=== PATIENT | male | born 1955 | race Caucasian/White ===

== ENCOUNTER 2016-09-25 23:28 | Inpatient (IN) | payer MEDICARE ==
[~2016-09-25] VITALS: Ht 182.9 cm; Wt 71.8 kg
--- NOTE | ~2016-09-25 | ENPV ---
Vascular Upper Extremities Veins Procedure Demographics Patient Name ROBSON HOWELL Date of Study 09/26/2016 Patient Number [id number] Gender Male Date of 1955 Age 61 Visit Number [id number] Height Accession Number [id number] Weight Room Number G6303 BSA BMI Referring Codie Webb MD Interpreting Neymar Holliday MD Physician Physician Physician Ordering Physician Codie Webb MD Frame Builder Pecan Cleaner Keerthi Castro T, [facility] Conclusions Summary The right internal jugular vein was not imaged due to central line location. No evidence of DVT in the bilateral upper extremities. Possible thrombus in the right cephalic vein. Procedure Type of Study: Veins:Upper Extremities Veins, Venous Duplex Upper Extremity Bilateral. Indications for Study:DVT, History of. Patient Status:Routine. Study Location:Inpatient Portable. Technical Quality:Adequate visualization. Velocities are measured in cm/s ; Diameters are measured in cm Right UE Vein Measurements 2D and Doppler Measurements + + + + +--------+--------+ !Location !Visualized !Compressibility !Thrombosis !Signal !Reflux ! + + + + +--------+--------+ !SCV !Yes !Yes !None !Phasic !No ! + + + + +--------+--------+ !Innominate !Yes !Yes !None !Phasic !No ! + + + + +--------+--------+ !Axillary !Yes !Yes !None !Phasic !No ! + + + + +--------+--------+ !Brachial !Yes !Yes !None !Phasic !No ! + + + + +--------+--------+ !Radial !Yes !Yes !None !Phasic !No ! + + + + +--------+--------+ !Ulnar !Yes !Yes !None !Phasic !No ! + + + + +--------+--------+ !Basilic !Yes !Yes !None !Phasic !No ! + + + + +--------+--------+ !Cephalic !Yes !Partial ! ! ! ! + + + + +--------+--------+ Left UE Vein Measurements 2D and Doppler Measurements + + + + +--------+--------+ !Location !Visualized !Compressibility !Thrombosis !Signal !Reflux ! + + + + +--------+--------+ !IJV !Yes !Yes !None !Phasic !No ! + + + + +--------+--------+ !SCV !Yes !Yes !None !Phasic !No ! + + + + +--------+--------+ !Innominate !Yes !Yes !None !Phasic !No ! + + + + +--------+--------+ !Axillary !Yes !Yes !None !Phasic !No ! + + + + +--------+--------+ !Brachial !Yes !Yes !None !Phasic !No ! + + + + +--------+--------+ !Radial !Yes !Yes !None !Phasic !No ! + + + + +--------+--------+ !Ulnar !Yes !Yes !None !Phasic !No ! + + + + +--------+--------+ !Basilic !Yes !Yes !None !Phasic !No ! + + + + +--------+--------+ !Cephalic !Yes !Yes !None !Phasic !No ! + + + + +--------+--------+ Signature dtt: DAVID QUINONES dtd: 09/26/16 1053 Physician Self Edit
--- NOTE | ~2016-09-25 | HP ---
PATIENT'S NAME: ROBSON HOWELL [facility] AGE: 61 Y [address] ROOM: [id number] [place], [place] [address] LOCATION: GPCU ADMIT DATE: 09/25/2016 History & Physical DISCHARGE DATE: FAMILY PHYSICIAN: PHYSICIAN, UNKNOWN ATTENDING PHYSICIAN: DIALLO EASTON DATE OF SERVICE: 09/25/2016 CHIEF COMPLAINT: Acute blood loss anemia likely upper gastrointestinal bleeding. HISTORY OF PRESENT ILLNESS: This is a 61-year-old male who says that today around 4 p.m. after he went to the bathroom to urinate and to have a bowel movement he noticed that his bowel movement was loose, but he denied any black stool or any bright red blood per rectum. After that, he walked out of the bathroom, while he was walking, he felt dizzy, and he felt like he was going to pass out; therefore, he sat down on the ground. He is not sure if he passed out or not. But he strongly denied any head trauma or any fall. Because he felt so weak and dizzy, he called the ambulance and the patient was brought to [facility]. Over there, patient was hypotensive on arrival with SBP in high 70s' and MAP in low 60's and was found to be acutely anemic with hemoglobin of 7.2, hematocrit 21.9, and also leukocytosis with 11.5 and thrombocytopenia with 141, I am not sure what is the baseline, but over there, the physician who transferred the patient here told me that his baseline usually runs hemoglobin in the 12. Looking at our medical records back in October of 2013, his hemoglobin was 11.5, hematocrit was 35.7. He was also found to be thrombocytopenic with a platelet of 141. Based on our records back in October 2013, his platelet was 77,000. Hemoccult blood test x1 was negative. He was also hypokalemic with a potassium of 2.6. Kidney function within normal limits. Cardiac enzymes first set negative. INR was 1.83, D-dimer was 20.61, and PTT was 30.9. The patient had a CT pulmonary angiogram performed and no PE. EKG showed sinus tachycardia, heart rate of 138, with nonspecific ST changes, likely rate related. The patient says that prior to going to [place] during the ambulance ride, the patient also complained of slight substernal chest tightness and slight shortness of breath as well as abdominal pain specifically in the right lower quadrant and the left lower quadrant and infraumbilical abdomen, but he said the pain in chest and abdomen is very mild. He feels nauseous, but he has not vomited. The patient strongly denies any recent hematemesis, coffee-ground emesis, melena, hematochezia, or hematuria and can not remember when was the last time he had any of these GI bleeding symptoms. Because of the concern of esophageal variceal bleeding, the patient was transferred here for higher level of care. Prior to coming, patient was given iv octerotide bolus then drip, iv protonix bolus then drip, 2L NS bolus, 1g iv cefriaxone x1, KCL 40meq IV x1, and IM Vit K 1mg x1. I did not instruct IM Vit K. PATIENT'S NAME: ROBSON HOWELL [facility] AGE: 61 Y [address] ROOM: [place] [address] [facility] ADMIT DATE: 09/25/2016 History & Physical DISCHARGE DATE: FAMILY PHYSICIAN: PHYSICIAN, UNKNOWN ATTENDING PHYSICIAN: DIALLO EASTON Before the patient came here, I instructed over there to give him IV octreotide bolus followed by drip, IV Protonix bolus followed by drip, 1 dose of 1 g IV ceftriaxone given that they do not have cefotaxime for the concern for spontaneous bacterial peritonitis, they also do not have the ability to perform paracentesis for peritoneal fluid study, the patient also got a bolus 1 L over there of normal saline, and they ordered 1 unit of blood, but it was never given. Over there, the physician had already given 1 mg of intramuscular vitamin K, which I did not instruct. The patient was sent over here for higher level of care. At one point, when the patient arrived over there in the emergency room, the patient was also found to be hypotensive, blood pressure was low in the 71 systolic with MAP of 46. The patient's blood pressure did improve with normal saline bolus, where an additional bolus was given for total of 2 L, blood pressure improved to the 120s, MAP in the high 70s, and the patient was transferred here. REVIEW OF SYSTEMS: As mentioned in the history of present illness. All other systems reviewed and negative except those mentioned in the history of present illness. PAST MEDICAL HISTORY: 1. Alcoholic cirrhosis, status post TIPS, esophageal varices, status post upper endoscopy banding twice in the past, the first-time was here with us by Dr. Castro in October 2013 and the second time was in [place] and he is not sure of which year was that. 2. Ascites status post therapeutic paracentesis PRN in [place]. He does not remember when was the last time he had the paracentesis. 3. Hypertension. 4. Prior history of upper gastrointestinal bleeding from esophageal variceal bleeding, status post banding twice as mentioned before. 5. Reported history of extensive RUE DVT secondary to PICC line induced (I was told by transferring physician in [facility] but details not unclear and no available report either). ALLERGIES: NONE. HOME MEDICATIONS: Currently, it is being reconciled. SOCIAL HISTORY: The patient says that he still smokes cigarette about 3 cigarettes per day for the last 50 years. He quit drinking alcohol about 3 months ago, and he used to drink 5 cans of beer per day for the last 20 years. He denies any illegal drug use. PAST SURGICAL HISTORY: PATIENT'S NAME: ROBSON HOWELL [facility] AGE: 61 Y [address] ROOM: [place] [address] [facility] ADMIT DATE: 09/25/2016 History & Physical DISCHARGE DATE: FAMILY PHYSICIAN: PHYSICIAN, UNKNOWN ATTENDING PHYSICIAN: DIALLO EASTON 1. Status post right elbow fracture surgical repair in the past. 2. Status post right shoulder fracture surgical repair in the past. 3. Status post right hip surgery for a fracture in the past. 4. Status post bilateral cataract surgery in August 2016. 5. status post TIPS placement. 6. status post esophageal varices banding x2. FAMILY HISTORY: Father from brain aneurysm at age 87 and mother is healthy and alive. PHYSICAL EXAMINATION: VITAL SIGNS: At the time of my dictation, temperature 98.1, heart rate 104, respirations 22, blood pressure 136/62, saturation 96% on 2 L nasal cannula, and pain 2/10 in the abdomen specifically in the infraumbilical area, right lower quadrant, and left lower quadrant. GENERAL APPEARANCE: Alert and oriented x3, in no acute distress. HEENT: Mildly icteric in both sclerae, pupils are equally round and reactive to light. Extraocular muscles intact. Nasal turbinates are normal bilaterally. Moist oral mucosa. No oral thrush. NECK: No JVD. No cervical lymphadenopathy. No neck stiffness. CARDIOVASCULAR: Regular rate and rhythm. Normal S1, S2. No murmur, no rubs, no gallops. RESPIRATORY: Clear. Chest wall nontender to palpation. ABDOMEN: Distended, soft, no abdominal rigidity, no rebound tenderness, no palpable mass, he has a hernia that is palpable and reducible and not painful in the right lower quadrant, mildly tender to palpation in the infraumbilical, right lower quadrant, and left lower quadrant area, bowel sounds are present. EXTREMITIES: No edema in upper or lower extremities. NEUROLOGIC: Grossly nonfocal. SKIN: No ulcer, no rash, no cyanosis. MUSCULOSKELETAL: No joint pain. No muscle pain. Range of motion intact. No pain in palpation of posterior ribs. LABORATORY DATA: Currently, our labs are pending. Labs from the outside facility today white blood cell 11.5, hemoglobin 7.2, hematocrit 21.9, and platelet 141. Hemoccult blood test x1 negative. Potassium 2.6, sodium 140, chloride 107, carbon dioxide 15, BUN 12, glucose 134, creatinine 1.2, calcium 7.3, LDH 164, magnesium 1.8, anion gap 21, and GFR 66. CK-MB 2.2, CPK 108, troponin less than 0.015, INR 1.83, PTT 30.9, D- dimer 20.61. IMAGING STUDIES: 1. CT pulmonary angiogram performed at the outside facility on admission: The report showed COPD and ascites with LeVeen shunt in place and no evidence of pulmonary embolism. PATIENT'S NAME: ROBSON HOWELL [facility] AGE: 61 Y [address] ROOM: [place] [address] [facility] ADMIT DATE: 09/25/2016 History & Physical DISCHARGE DATE: FAMILY PHYSICIAN: PHYSICIAN, UNKNOWN ATTENDING PHYSICIAN: DIALLO EASTON 2. Chest x-ray from the outside facility on admission: Fracture of the right posterior 8th rib. The age is indeterminate. No pleural effusion. No evidence of heart failure. No evidence of pneumonia. ASSESSMENT AND PLAN: 1. Regarding his acute blood loss anemia likely from upper gastrointestinal bleeding and sepsis from probable SBP: Currently, the cause is not clear, could be from esophageal variceal bleeding from slow oozing of blood. The patient denies any projectile hematemesis or coffee-ground emesis. He also denies any melena or hematochezia. Hemoccult test was negative x1 from the outside facility today. The patient has history of upper gastrointestinal bleeding in the past from esophageal variceal bleeding requiring banding twice in the past. Therefore, I am going to treat him for esophageal variceal bleeding. The plan will be intravenous normal saline hydration and continue the intravenous octreotide drip, continue intravenous Protonix drip, and transfuse the blood for goal to reach hemoglobin more than 9 and correct the coagulopathy. I am waiting for all the blood work to come back to correct the coagulopathy to keep the platelet more than 50,000 and correct the INR if it is supratherapeutic. Regarding prophylaxis for spontaneous bacterial peritonitis in any patient with liver cirrhosis with gastrointestinal bleeding usually is 1g iv ceftriaxone daily for 7 days. However, in this case, I am going to treat him empirically for spontaneous bacterial peritonitis given that he does have mild abdominal tenderness to palpation in the bilateral lower quadrant and infraumbilical area. CT pulmonary angiogram from the outside facility did show extensive ascites. At this moment, it is 1:41 a.m., therefore I do not have staff to perform paracentesis for ascitic fluid study. Ideally, he should be getting cefotaxime 2 g q.8 h. IV, but when called the pharmacy, we are shortage in this medication and is only reserved for the pediatric population; therefore, I am going to go ahead with ceftriaxone 2 g IV daily as a second choice. GI consult in the morning. Further plan depends on clinical course. I will get a CT abd/pelv with contrast for abdominal pain and doppler US to confirm TIPS patency and look into biliary tract. Radiology to evaluate to perform diagnostic paracentesis for SBP studies in AM if needed. I will do sepsis workup including blood culture x2, urinalysis, urine drug screen, and urine culture. GI consult in AM and NPO and iv fluids. Further plan depends on clinical course. Sepsis order set has been completed and is in chart. 2. Regarding his hypertension: Currently, medications are being reconciled and will hold off antihypertensies in setting of sepsis and GI bleeding. PATIENT'S NAME: DANTE, ROBSON M [facility] AGE: 61 Y [address] ROOM: [place] [address] [facility] ADMIT DATE: 09/25/2016 History & Physical DISCHARGE DATE: FAMILY PHYSICIAN: PHYSICIAN, UNKNOWN ATTENDING PHYSICIAN: DIALLO EASTON 3. Regarding his active cigarette use: Nicotine patch 21 g transdermal daily. 4. Deep vein thrombosis prophylaxis: No heparin or lovenox in setting of GI bleeding. 5. Regarding his recent history of right upper extremity PICC line induced DVT: This information was given to me by the transferring physician from [place] and is on coumadin for it. Currently, in the setting of upper gastrointestinal bleeding, I am going to check INR right now and I need to correct it if it is supratherapeutic. I am going to get a bilateral upper and lower extremity venous duplex ultrasound to confirm deep vein thrombosis since report is not available upon my request. 6. Deep vein thrombosis prophylaxis: INR is pending right now and will avoid heparin or lovenox in setting of upper GI bleeding. Time spent on the day of admission 50 minutes including chart review, interviewing and examining the patient, getting transfer details from the transferring physician. I also went over the plan of care with the patient and nurses. I also addressed all the questions and concerns the patient had. MD ELLY ISBELL/myla /[id number] D: [id number] T: [id number] HISTORY & PHYSICAL
--- NOTE | ~2016-09-25 | OR ---
PATIENT'S NAME: ROBSON HOWELL [facility] AGE: 61 Y [address] ROOM: [place] [address] [facility] ADMIT DATE: 09/25/2016 OR/Procedure Report DISCHARGE DATE: FAMILY PHYSICIAN: PHYSICIAN, UNKNOWN ATTENDING PHYSICIAN: DIALLO EASTON SURGEON: Ej Capps MD AIR CONDITIONING EQUIPMENT MECHANIC: DATE OF PROCEDURE: 09/26/2016 PREOPERATIVE DIAGNOSES: 1. Acute blood-loss anemia. 2. Alcoholic cirrhosis with esophageal varices and ascites. 3. Cirrhosis-induced coagulopathy. 4. Poor peripheral venous access. POSTPROCEDURE DIAGNOSIS: 1. Acute blood-loss anemia. 2. Alcoholic cirrhosis with esophageal varices and ascites. 3. Cirrhosis-induced coagulopathy. 4. Poor peripheral venous access. INDICATIONS: The patient is a 61-year-old male, who was admitted with acute hypovolemic blood loss. The patient has had poor peripheral venous access, and I was requested to place a central venous catheter. Informed consent was obtained from the patient. DESCRIPTION OF PROCEDURE: The patient was taken into the procedure room of the OR suite, placed in a supine position with his head turned to the left. A [employer] monitor was used to identify the course of the right internal jugular vein. The neck was prepped and draped in the usual sterile fashion using full barrier precautions. Lidocaine, 1%, was injected subcutaneously over the right internal jugular vein. A seeker needle then was used to cannulate the right IJ on the 1st attempt. A dilator was then passed over the guidewire after creation of the stab incision. The dilator was then removed and a 16 cm 8.5-Ethiopian four lumen catheter was easily introduced over the guidewire to the depth of its hub. The guidewire was then removed and the lumens flushed. Catheter was sutured into place and a sterile dressing applied. The patient tolerated the procedure well. EJ CAPPS MD MWS/irineol PATIENT'S NAME: ROBSON HOWELL [facility] AGE: 61 Y [address] ROOM: [place] [address] LOCATION: [facility] ADMIT DATE: 09/25/2016 OR/Procedure Report DISCHARGE DATE: FAMILY PHYSICIAN: PHYSICIAN, UNKNOWN ATTENDING PHYSICIAN: DIALLO EASTON /[id number] d: 09/26/16 0907 t: 09/29/16 1511, OPERATIVE SUMMARY
--- NOTE | ~2016-09-25 | DS ---
PATIENT'S NAME: ROBSON HOWELL [facility] AGE: 61 Y [address] ROOM: [place] [id number] LOCATION: GPCU ADMIT DATE: 09/25/2016 Discharge Summary DISCHARGE DATE: 09/30/2016 FAMILY PHYSICIAN: PHYSICIAN, LAURA ATTENDING PHYSICIAN: Berhane Mackay PRIMARY DIAGNOSES: 1. Severe sepsis. 2. Hemorrhagic ascites. 3. Esophageal varices status post banding procedure. 4. Acute blood loss anemia. 5. Alcoholic cirrhosis of the liver. 6. Coagulopathy. 7. History of deep vein thrombosis, right upper extremity (provoked secondary to PICC line). 8. Essential hypertension. 9. Status post TIPS procedure. OPERATIONS/PROCEDURES: CT scan of the abdomen and pelvis was performed on 09/26/2016 demonstrating a cirrhotic-appearing liver, large volume ascites with increased attenuation concerning for hemorrhage. TIPS catheter in place. Abdominal ultrasound performed on 09/26/2016 confirmed the presence of ascites. Abdominal paracentesis was performed on 09/26/2016. EGD with esophageal variceal banding was performed on 09/29/2016 without any complications. HISTORY OF PRESENTING ILLNESS AND REASON FOR ADMISSION: Please refer to the H and P dictated on 09/25/2016. HOSPITAL COURSE: The patient was admitted to the hospital as noted above with a presumptive diagnosis of acute upper GI bleeding. He was noted to be profoundly anemic at the point of admission. There was also clinical evidence for sepsis. Concern was for spontaneous bacterial peritonitis. He was treated with IV Rocephin. His clinical condition was stable. He did receive PRBC transfusion and his hemoglobin remained relatively stable. There was, in fact, no evidence for brisk GI bleeding. Abdominal imaging studies did however suggest presence of intraabdominal bleeding. Concern was for SBP as above. He was continued on antibiotic therapy, but cultures were negative. Abdominal paracentesis was carried out after the initiation of antibiotics and cultures failed to show any growth. His clinical condition improved. He had been treated with warfarin for right upper extremity DVT, but this was held. This was noted to be a provoked PATIENT'S NAME: ROBSON HOWELL [facility] AGE: 61 Y [address] ROOM: [address] [address] LOCATION: GPCU ADMIT DATE: 09/25/2016 Discharge Summary DISCHARGE DATE: 09/30/2016 FAMILY PHYSICIAN: , LAURA ATTENDING PHYSICIAN: Berhane Mackay. He did not show any residual evidence for active DVT in the arm. No imaging studies were undertaken. His coagulopathy improved. He did undergo EGD with esophageal variceal banding by Dr. Johnson, Gastroenterology. He did not show any evidence for ongoing bleeding and his clinical condition was stable. At that point, it was felt he would be stable enough for discharge to home with plans for close clinical followup with his primary care provider as well as outpatient followup with Gastroenterology. DISCHARGE INSTRUCTIONS: Diet: 2 g sodium per day as tolerated. Activity: As tolerated. Strict avoidance of alcohol. MEDICATIONS: 1. Ciprofloxacin 500 mg p.o. daily. 2. Lasix 20 mg p.o. daily. 3. Peridex Rinse 10 to 15 mL p.o. swish and spit q.i.d. p.r.n. 4. Nicotine patch 21 mg apply and change daily. Do not smoke. 5. Protonix 40 mg p.o. b.i.d. 6. Spironolactone 50 mg p.o. daily. 7. Zanaflex 2 mg p.o. t.i.d. p.r.n. 8. Meclizine 25 mg p.o. t.i.d. p.r.n. 9. Pepcid 20 mg p.o. b.i.d. 10. Gatifloxacin ophthalmic drops 1 drop each eye q.i.d. FOLLOWUP: He will follow up with his primary care provider in [place] in 5-7 days. He will follow up with Gastroenterology in 2-4 weeks. CONDITION ON DISCHARGE: Fair. Total time spent on discharge process 45 minutes. MD ITALO ALEGRE/myla /[id number] d: 10/01/16 0258 t: 10/12/16 2144, DISCHARGE SUMMARY
--- NOTE | ~2016-09-25 | CON ---
PATIENT'S NAME: ROBSON HOWELL [facility] AGE: 61 Y [address] ROOM: [id number] [place], [place] [address] LOCATION: GPCU ADMIT DATE: 09/25/2016 Consultation DISCHARGE DATE: FAMILY PHYSICIAN: PHYSICIAN, LAURA ATTENDING PHYSICIAN: DIALLO EASTON DATE OF CONSULTATION: 09/26/2016 REFERRING PHYSICIAN: MARVA TREJO MD HOSPITAL CONSULTATION REASON FOR CONSULTATION: Liver cirrhosis, ascites, and suspected GI bleed. HISTORY OF PRESENT ILLNESS: This is a very pleasant 61-year-old male with past medical history significant for decompensated liver cirrhosis secondary to alcohol use. The patient does state that he has been alcohol free for the past 3 months. He does have a history of esophageal variceal band ligation with the first procedure completed in October of 2013 with another upper endoscopy with banding approximately a year later completed in [place]. The patient also has a history of paracentesis though denies any paracentesis over the past 5 to 6 months. The patient was at home where he had a bowel movement and then began feeling like he was going to pass out as he lowered himself to the floor. He did have a syncopal episode where he felt dizzy while ambulating. The patient called the ambulance, was transported to [facility] in [place]. At that time, he was found to be hypotensive as well as acutely anemic with a hemoglobin of 7.2, hematocrit of 21.9. The patient was then transferred to [facility] for further GI workup. The patient was seen and examined. He denies any hematemesis, hematochezia, or melenic stool. He denies any evidence of GI blood loss. He does state over the past few days, he has been having abdominal discomfort with a decrease in appetite. The patient denies any chest pain, chest pressure, shortness of breath, fever, or chills. He did undergo a CT abdomen and pelvis at [facility] showing large volume ascites with questionable hemorrhage, cirrhotic liver with suspected regenerating nodules, TIPS and likely patent. We were asked to see in consultation for the patient's liver disease. PAST MEDICAL HISTORY: 1. Alcoholic liver cirrhosis, status post TIPS. 2. Esophageal varices banding x2. 3. Ascites status post paracentesis. 4. Hypertension. PATIENT'S NAME: ROBSON HOWELL [facility] AGE: 61 Y [address] ROOM: [place] [address] LOCATION: GPCU ADMIT DATE: 09/25/2016 Consultation DISCHARGE DATE: FAMILY PHYSICIAN: PHYSICIAN, NO ATTENDING PHYSICIAN: DIALLO EASTON 5. History of upper GI bleed secondary to esophageal varices. 6. History of extensive right upper extremity DVTs secondary to PICC line. PAST SURGICAL HISTORY: 1. Right elbow fracture, surgically repaired. 2. Right shoulder fracture, surgically repaired. 3. Right hip surgery for fracture. 4. Bilateral cataracts surgery. 5. TIPS placement. 6. Status post esophageal varices banding x2. First in October of 2013, second banding completed approximately a year from October 2013 in [place]. SOCIAL HISTORY: The patient does admit to smoking 3 cigarettes per day for the past 50 years. He used to have significant alcohol use though states that he has not drink in the past 3 months. At the time of active alcohol use, he does admit to drinking 5 cans of beer per day. He denies any illicit drug use. FAMILY HISTORY: The patient's father at the age of 87 from a brain aneurysm. The patient's mother is healthy. He denies any family history of liver diseases or cancers to his knowledge. ALLERGIES: NO KNOWN MEDICATION ALLERGIES. CURRENT MEDICATIONS: Please refer to the medication administration record. In review of his home medications: 1. He does take Pepcid. 2. Zanaflex. 3. Antivert. 4. Lasix 40 mg daily. 5. Coumadin. 6. Protonix. 7. Gatifloxacin eyedrops. REVIEW OF SYSTEMS: A 10-point review of systems was completed. All were negative except for those identified in the history of present illness. PHYSICAL EXAMINATION: GENERAL: A pleasant 61-year-old male, who is lying in bed, who appears to be in no acute distress. VITAL SIGNS: Temperature 98.6, pulse of 101, respirations of 18, blood PATIENT'S NAME: ROBSON HOWELL [facility] AGE: 61 Y [address] ROOM: [place] [address] LOCATION: GPCU ADMIT DATE: 09/25/2016 Consultation DISCHARGE DATE: FAMILY PHYSICIAN: PHYSICIAN, NO ATTENDING PHYSICIAN: EASTON,LANDRUM pressure 110/55, and oxygen saturations 95% on room air. SKIN: [place], warm, and dry. No jaundice. HEENT: Head is normocephalic and atraumatic. Pupils are equal, round, and reactive to light. Sclerae are clear. Nonicteric. Oral mucosa is pink and moist. No thyromegaly. NECK: Soft and supple. CARDIOVASCULAR: Regular. Normal S1 and S2. RESPIRATORY: Respirations are even and unlabored. LUNGS: Clear to auscultation. Slightly diminished in the bilateral lobes. ABDOMEN: Slightly firm, round, and ascites noted. Bowel sounds positive x4 quadrants. MUSCULOSKELETAL: No muscle weakness or atrophy. EXTREMITIES: No clubbing, cyanosis, or edema. NEUROLOGIC: Grossly nonfocal. LABORATORY DATA AND IMAGING STUDIES: Labs and Diagnostics: The patient's lactate is 1.6, ammonia of 48. White blood cell count of 13.7, hemoglobin of 6.4, hematocrit of 19.7, and platelets of 130,000. Chemistry panel includes a glucose of 110, BUN of 16, creatinine of 1.3, sodium 143, potassium of 4.0, chloride of 112, CO2 of 20, and albumin of 2.2. AST of 35, ALT of 18, alkaline phosphatase of 171, total bilirubin of 2.3, direct bilirubin of 0.8, phosphorus of 3.4, and magnesium 1.7. Prothrombin time of 18.2, INR is 1.7. Drug screen was negative. Amylase was 36, lipase was 56. Procalcitonin was 0.82. A CT abdomen and pelvis was also completed showing liver with a nodular shrunken cirrhotic appearance, TIPS was present and also appears to be patent, somewhat small areas of patchy increased and decreased attenuation present within the liver, which may represent generating nodules, and calcified gallstones. The spleen was within normal limits as well as the pancreas and adrenal glands. Large volume of ascites was present, increased from the prior study. Increased attenuation was present within the ascites posteriorly raising the concern of hemorrhage within the ascitic fluid. This could also represent proteinaceous debris. Previously identified area of thrombosis within the portal vein was not identified on this current exam. ASSESSMENT AND PLAN: Again this is a pleasant 61-year-old male with past medical history of alcoholic liver cirrhosis with decompensation. The patient was admitted with acute anemia and transferred to [facility] for further workup regarding his anemia and sepsis. 1. Severe sepsis. There is concern for spontaneous bacterial peritonitis as the patient currently is on Rocephin and this should be continued until ruled out. 2. Anemia. The patient does not appear to have any evidence of gastrointestinal bleeding. Per the patient's CT scan completed today, PATIENT'S NAME: ROBSON HOWELL [facility] AGE: 61 Y [address] ROOM: [place] [address] LOCATION: GPCU ADMIT DATE: 09/25/2016 Consultation DISCHARGE DATE: FAMILY PHYSICIAN: PHYSICIAN, LAURA ATTENDING PHYSICIAN: DIALLO EASTON possible anemia secondary to intra-abdominal hemorrhage. We will go forth with an abdominal ultrasound-guided paracentesis for further evaluation. His ascitic fluid will be sent off for analysis including cell count with differential, culture cytology, albumin, amylase, and LDH. The patient may need to be given a unit of fresh frozen plasma as we will check for PT/INR. If INR is greater than 1.5, a unit of FFP will be given. Further the patient's MELD-Na score is 18 and Child-Sylvester Score of class C, further recommendations to be given after completion of paracentesis with the ascitic fluid analysis. The patient may need to undergo an upper endoscopy for further evaluation of the previous esophageal varices, though this will be placed on hold at this time. The patient also has been placed on ceftriaxone as this should be continued. Thank you for this consult and allowing us to participate in the care of this patient. CANDIS LEVY APRN FOR MD PRICILLA TABARES/irineol /[id number] d: 09/26/161820 t: 10/20/16 0735, CONSULTATION REPORT
--- NOTE | ~2016-09-25 | HP ---
PATIENT'S NAME: ROBSON HOWELL [facility] AGE: 61 Y [address] ROOM: [place] [address] [facility] ADMIT DATE: 09/25/2016 History & Physical DISCHARGE DATE: FAMILY PHYSICIAN: PHYSICIAN, UNKNOWN ATTENDING PHYSICIAN: DIALLO EASTON DATE OF SERVICE: ADDENDUM: Addendum is to the H and P dictated by Dr. Easton on September 26, 2016. EKG is performed here on our facility and shows sinus tachycardia, heart rate of 101 beats per minute with QRS of 84, QTc 444, and OH 109 milliseconds. No acute ischemic finding. The patient is chest pain-free. Currently, cardiac enzymes are pending. DIALLO EASTON MD CC/myla /[id number] P D: [id number] T: [id number] HISTORY & PHYSICAL
--- NOTE | ~2016-09-25 | ENPV ---
Vascular Lower Extremities DVT Study Procedure Demographics Patient Name ROBSON HOWELL Date of Study 09/26/2016 Patient Number [id number] Gender Male Date of 1955 Age 61 Visit Number [id number] Height Accession Number [id number] Weight Room Number G6303 BSA BMI Referring Codie Webb MD Interpreting Neymar Holliday MD Physician Physician Physician Ordering Physician Codie Webb MD Blood Bank Technician Brick Chimney Builder Pendletontanya Morris Syed Yorkfilippo Matthew T, [facility] Conclusions Summary No evidence of deep vein thrombosis or superficial thrombophlebitis in the lower extremities bilaterally . Procedure Type of Study: Veins:Lower Extremities DVT Study, Venous Duplex Lower Extremity Bilateral. Indications for Study:DVT, History of. Patient Status:Routine. Study Location:Inpatient Portable. Technical Quality:Adequate visualization. Velocities are measured in cm/s ; Diameters are measured in cm Right Lower Extremities DVT Study Measurements Right 2D and Doppler Measurements + + + + +------+------+ + !Location !Visualized!Compressibility!Thrombosis!Signal!Reflux!Reflux ! ! ! ! ! ! ! !(sec) ! + + + + +------+------+ + !GSV Thigh !Yes !Yes !None !Phasic!No ! ! + + + + +------+------+ + !Common !Yes !Yes !None !Phasic!No ! ! !Femoral ! ! ! ! ! ! ! + + + + +------+------+ + !Prox !Yes !Yes !None !Phasic!No ! ! !Femoral ! ! ! ! ! ! ! + + + + +------+------+ + !Mid Femoral!Yes !Yes !None !Phasic!No ! ! + + + + +------+------+ + !Dist !Yes !Yes !None !Phasic!No ! ! !Femoral ! ! ! ! ! ! ! + + + + +------+------+ + !Popliteal !Yes !Yes !None !Phasic!No ! ! + + + + +------+------+ + !Gastroc !Yes !Yes !None !Phasic!No ! ! + + + + +------+------+ + !PTV !Yes !Yes !None !Phasic!No ! ! + + + + +------+------+ + !Peroneal !Yes !Yes !None !Phasic!No ! ! + + + + +------+------+ + Left Lower Extremities DVT Study Measurements Left 2D and Doppler Measurements + + + + +------+------+ + !Location !Visualized!Compressibility!Thrombosis!Signal!Reflux!Reflux ! ! ! ! ! ! ! !(sec) ! + + + + +------+------+ + !GSV Thigh !Yes !Yes !None !Phasic!No ! ! + + + + +------+------+ + !Common !Yes !Yes !None !Phasic!No ! ! !Femoral ! ! ! ! ! ! ! + + + + +------+------+ + !Prox !Yes !Yes !None !Phasic!No ! ! !Femoral ! ! ! ! ! ! ! + + + + +------+------+ + !Mid Femoral!Yes !Yes !None !Phasic!No ! ! + + + + +------+------+ + !Dist !Yes !Yes !None !Phasic!No ! ! !Femoral ! ! ! ! ! ! ! + + + + +------+------+ + !Popliteal !Yes !Yes !None !Phasic!No ! ! + + + + +------+------+ + !Gastroc !Yes !Yes !None !Phasic!No ! ! + + + + +------+------+ + !PTV !Yes !Yes !None !Phasic!No ! ! + + + + +------+------+ + !Peroneal !Yes !Yes !None !Phasic!No ! ! + + + + +------+------+ + Signature dtt: DAVID QUINONES dtd: 09/26/16 [place] Physician Braden Silver
[2016-09-26] MEDS ORDERED: ZANAFLEX2 MG PO (00:20)
[2016-09-26] MEDS ORDERED: (DPS FOR ANTIVE25 MG PO (00:24)
[2016-09-26] MEDS ORDERED: PEPCID20 MG PO (00:24)
[2016-09-26] MEDS ORDERED: LASIX40 MG PO (00:25)
[2016-09-26] MEDS ORDERED: COUMADIN ** IA3 MG PO ×2 (00:27→10:14)
[2016-09-26 02:01] LABS: BASOPHIL # 0.1 K/uL (0.0-0.2); BASOPHIL % 0.4 %; EOSINOPHIL % 0.3 %; HEMATOCRIT 19.7 % (37.0-53.0); HEMOGLOBIN 6.4 g/dL (11.0-16.0); IMMATURE GRANULOCYTE # 0.1 K/uL (0.0-0.3); IMMATURE GRANULOCYTE % 0.6 %; LYMPHOCYTE # 0.9 K/uL (0.8-4.0); LYMPHOCYTE % 6.7 %; MCH 29.8 pg (27.0-34.0); MCHC 32.5 gm/dL (32.0-36.5); MCV 91.6 fl (83.0-98.0); MONOCYTE # 1.3 K/uL (0.0-1.0); MONOCYTE % 9.5 %; MPV 11.1 fl (9.4-12.4); NEUTROPHIL # (ANC) 11.3 K/uL (1.4-9.0); NEUTROPHIL % 82.5 %; NRBC % 0 /100WBC (0-0.00); PLATELET COUNT 130 K/uL (150-450); RBC 2.15 M/uL (3.50-5.50); RDW-CV 15.8 % (11.9-14.6); WBC 13.7 K/uL (4.0-11.0)
[2016-09-26 02:10] LABS: INR - (THERAPEUTIC) 1.7 (0.9-1.1); PROTIME 18.2 SECONDS (9.6-11.1); PTT 31 SECONDS (25-32)
[2016-09-26 02:20] LABS: ALBUMIN 2.4 gm/dL (3.5-5.0); ALK PHOS 175 IU/L (33-138); ALT 21 IU/L (12-78); ANION GAP 15.8 (10.0-19.0); AST 36 IU/L (10-40); BLOOD UREA NITROGEN 14 mg/dL (6-24); CHLORIDE 110 mMol/L (96-110); CO2 19 mMol/L (22-32); CPK 124 IU/L (35-332); CREATININE 1.1 mg/dL (0.6-1.3); ESTIMATED GFR (MDRD EQUATION) > 60; MAGNESIUM 1.7 mg/dL (1.3-2.6); PHOSPHORUS 3.4 mg/dL (2.5-4.9); POTASSIUM 3.8 mMol/L (3.7-5.1); SODIUM 141 mMol/L (135-145); TOTAL BILIRUBIN 2.5 mg/dL (0.0-1.5); TOTAL PROTEIN 5.6 g/dL (6.0-8.4)
[2016-09-26 02:26] LABS: CALCIUM 7.4 mg/dL (8.5-10.5)
--- NOTE | 2016-09-26 04:44 | NUR ---
Patient states he was feeling fine, went to the bathroom, had loose stool. Upon walking back from bathroom, he became dizzy and sat down. He is unsure if he lost consciousness. Patient states he crawled to phone and called EMS. Patient was given nitro en route to [place] and then became hypotensive. HGB 7.2 in [place], no blood transfused. Transferred to [facility].
--- NOTE | 2016-09-26 04:47 | NUR ---
Significant Event: Patient is alert and oriented. Pressures 108-130s/50-60s. Tachycardiac with rates 90-1 teens. Jaundiced. Complaints of hoarseness/tender throat. Denies nausea at this time. Abdomen is distended. HGB 6.4. Patient is to recieve 2 units PRBCs over 8 hours. First unit transfusing. Octreotide and protonix infusing. GI consult in am. Patients sister is POA and requests to be called if patient has decline in status. Pleasant and cooperative with cares. Follow up: continue to monitor
[2016-09-26 06:43] LABS: ALBUMIN 2.2 gm/dL (3.5-5.0); CREATININE 1.3 mg/dL (0.6-1.3); TOTAL BILIRUBIN 2.3 mg/dL (0.0-1.5); TOTAL PROTEIN 5.4 g/dL (6.0-8.4)
[2016-09-26 06:44] LABS: CALCIUM 6.9 mg/dL (8.5-10.5)
[2016-09-26 08:52] LABS: BLOOD URINE 150 /UL (NEGATIVE); COLOR URINE YELLOW (YELLOW); GLUCOSE URINE NEGATIVE (NEGATIVE); KETONE URINE NEGATIVE (NEGATIVE); LEUKOCYTES URINE 25 /UL (NEGATIVE); NITRITE URINE NEGATIVE (NEGATIVE); PROTEIN URINE 30 mg/dL (NEGATIVE); TURBIDITY URINE CLEAR (CLEAR); UROBILINOGEN URINE 4 mg/dL (NORMAL)
[2016-09-26 08:58] LABS: BACTERIA URINE NEGATIVE (NEGATIVE); EPITHELIAL URINE RARE #/HPF (NEGATIVE); RBC URINE 20-50 #/HPF (NEGATIVE)
[2016-09-26 09:14] LABS: BARBITURATE NEGATIVE (NEGATIVE); COCAINE NEGATIVE (NEGATIVE); OPIATES NEGATIVE (NEGATIVE)
[2016-09-26 09:22] LABS: AMPHETAMINE NEGATIVE (NEGATIVE)
[2016-09-26] MEDS ORDERED: PROTONIX40 MG PO (10:15)
[2016-09-26] MEDS ORDERED: GATIFLOXACIN2.5 ML OPHTH (10:21)
[2016-09-26 11:21] LABS: HEMATOCRIT 21.5 % (37.0-53.0)
[2016-09-26 11:30] LABS: INR - (THERAPEUTIC) 1.6 (0.9-1.1); PROTIME 17.4 SECONDS (9.6-11.1)
--- NOTE | 2016-09-26 14:23 | NUR ---
Introduced self and care management services to patient and friend at bedside. Lives with friend in [place], anticipates going home on discharge, denies needs or concerns today. Will follow and assist with dc planning as needs identified.
[2016-09-26 16:17] LABS: HEMOGLOBIN 7.5 g/dL (11.0-16.0)
--- NOTE | 2016-09-26 19:26 | NUR ---
PATIENT HAD CENTRAL LINE PLACED THIS AM, THEN HAD CT OF ABD/PELVIS. ULTRASOUND OF EXTREMITIES X4 COMPLETED IN PATIENT'S ROOM. PROTONIX GTT, OCTREOTIDE INFUSION AND IV FLUIDS CONTINUED. PATIENT GIVEN 1 UNIT OF PRBC'S AFTER RETURNING TO PCU FROM RADIOLOGY. LABS CHECKED, INR WAS 1.6, 1 UNIT FFP GIVEN WITH PLAN FOR PARACENTESIS WHEN INFUSION COMPLETE. RADIOLOGY NOTIFIED THAT INFUSION OF FFP NEARLY COMPLETED AT 14:30. RADIOLOGY NURSE STATED THAT PHYSICIAN WAS GOING TO DO PARACENTESIS TOMORROW. FAMILY UPDATED ON PLAN OF CARE PER PATIENT'S REQUEST. SBP 95-110'S, 1-2L NC KEEPS SATS MID 90'S. UA, UDS AND URINE CULTURE COMPLETED.
[2016-09-26 22:32] LABS: HEMATOCRIT 24.7 % (37.0-53.0)
[2016-09-27 05:10] LABS: ALBUMIN 2.2 gm/dL (3.5-5.0); ANION GAP 13.2 (10.0-19.0); BLOOD UREA NITROGEN 12 mg/dL (6-24); CHLORIDE 111 mMol/L (96-110); CO2 23 mMol/L (22-32); ESTIMATED GFR (MDRD EQUATION) > 60; POTASSIUM 3.2 mMol/L (3.7-5.1); SODIUM 144 mMol/L (135-145)
[2016-09-27 05:13] LABS: CALCIUM 6.9 mg/dL (8.5-10.5); PHOSPHORUS 1.7 mg/dL (2.5-4.9)
--- NOTE | 2016-09-27 05:14 | NUR ---
Significant Event:A/Ox3. Afebrile. SR HR 90-110. SBP 100-120s. Oxygen weaned to RA while awake but increased to 2L when sleeping. Patient tolerated clear liquids until midnight. NPO for paracentisis. Abdomen round and firm. No BM this shift. R)IJ continues to have Protonix gtt/Octreotide/D5NS infusing. No c/o with IJ. Drsg will need to be changed later this afternoon or tonight for 24 hour change per policy. Transfers 1 assist. Follow up:Continue to monitor. EGD in the near future.
[2016-09-27 05:23] LABS: BASOPHIL # 0.1 K/uL (0.0-0.2); BASOPHIL % 1.1 %; EOSINOPHIL # 0.3 K/uL (0.0-0.5); EOSINOPHIL % 3.8 %; HEMATOCRIT 22.9 % (37.0-53.0); IMMATURE GRANULOCYTE % 0.5 %; LYMPHOCYTE % 11.4 %; MCH 29.5 pg (27.0-34.0); MCHC 32.3 gm/dL (32.0-36.5); MCV 91.2 fl (83.0-98.0); MONOCYTE # 1.2 K/uL (0.0-1.0); MONOCYTE % 14.1 %; MPV 11.4 fl (9.4-12.4); NEUTROPHIL # (ANC) 5.8 K/uL (1.4-9.0); NEUTROPHIL % 69.1 %; NRBC % 0 /100WBC (0-0.00); PLATELET COUNT 105 K/uL (150-450); RBC 2.51 M/uL (3.50-5.50); RDW-CV 16.8 % (11.9-14.6); WBC 8.4 K/uL (4.0-11.0)
[2016-09-27 05:25] LABS: HEMOGLOBIN 7.4 g/dL (11.0-16.0)
[2016-09-27 08:21] LABS: INR - (THERAPEUTIC) 1.4 (0.9-1.1); PROTIME 14.9 SECONDS (9.6-11.1)
[2016-09-27 11:43] LABS: PERITONEAL FLUID TURBIDITY 4+ (CLEAR)
[2016-09-27 12:15] LABS: % PERITONEAL FLUID EOS 2 % (0-0); % PERITONEAL FLUID MONO/MACRO 5 % (0-0); % PERITONEAL FLUID NEUT 70 % (0-25)
--- NOTE | 2016-09-27 17:02 | NUR ---
Significant Event: A/O X 3. RESTING IN BED. PARACENTESIS TO LT. LOWER ABD. TODAY. SITE WITH C/D/I DRESSING. AFEBRILE. HR SR IN 60-80'S. SBP 115-118. CONT. ON PROTONIX AND OCTREOTIDE GTTS. DENIES ABD. PAIN. Follow up: CONT. TO MONITER.
[2016-09-28 03:31] LABS: ALBUMIN 2.2 gm/dL (3.5-5.0); ANION GAP 10.8 (10.0-19.0); BLOOD UREA NITROGEN 10 mg/dL (6-24); CHLORIDE 114 mMol/L (96-110); CO2 22 mMol/L (22-32); CREATININE 1.1 mg/dL (0.6-1.3); ESTIMATED GFR (MDRD EQUATION) > 60; POTASSIUM 3.8 mMol/L (3.7-5.1); SODIUM 143 mMol/L (135-145)
[2016-09-28 03:35] LABS: PHOSPHORUS 1.9 mg/dL (2.5-4.9)
[2016-09-28 03:50] LABS: BASOPHIL # 0.1 K/uL (0.0-0.2); BASOPHIL % 0.7 %; EOSINOPHIL # 0.3 K/uL (0.0-0.5); EOSINOPHIL % 3.7 %; HEMATOCRIT 23.9 % (37.0-53.0); IMMATURE GRANULOCYTE % 0.4 %; LYMPHOCYTE % 12.7 %; MCH 29.6 pg (27.0-34.0); MCHC 31.8 gm/dL (32.0-36.5); MONOCYTE % 12.5 %; MPV 11.5 fl (9.4-12.4); NEUTROPHIL # (ANC) 5.3 K/uL (1.4-9.0); NRBC % 0.3 /100WBC (0-0.00); PLATELET COUNT 102 K/uL (150-450); RBC 2.57 M/uL (3.50-5.50); RDW-CV 16.9 % (11.9-14.6); WBC 7.6 K/uL (4.0-11.0)
[2016-09-28 03:59] LABS: HEMOGLOBIN 7.6 g/dL (11.0-16.0)
--- NOTE | 2016-09-28 04:54 | NUR ---
Significant Event: PATIENT IS A/O X3. VSS. HR 70-90'S. SBP 120'S. AFEBRILE. 02 SATS IN LOW TO MID 90'S ON 1L 02 PER NC. C/O PAIN BUT TOLERABLE. LUNGS CLEAR TO CLEAR/DIM THROUGHOUT. UP WITH ONE ASSIST. BOWELS ACTIVE BUT NO BM SINCE THE . NEEDS HEMATEST DONE. CONTINUES TO HAVE ASCITES BUT IMPROVED. HAS DRESSING TO LEFT LOWER QUADRANT THAT FROM PARACENTESIS THAT CAN BE REMOVED AT 1000 THIS AM. IV TO LEFT HAND AND LEFT AC BOTH SL. RIGHT QUAD LUMEN IJ INTACT. DRESSING CHANGED. CONTINUES TO HAVE OCTREITIDE AND PROTONIX RUNNING. GUERRERO (PATIENT'S SISTER) CALLED AND THE PATIENT/FAMILY NEEDS TO BRING IN POA DOCUMENTION. Follow up: CONTINUE TO MONITOR PER PLAN OF CARE.
[2016-09-28 10:36] LABS: HEMATOCRIT 26.5 % (37.0-53.0); HEMOGLOBIN 8.4 g/dL (11.0-16.0)
--- NOTE | 2016-09-28 16:41 | NUR ---
Significant Event: A/Ox3. SBP- 130-150s. P-70-80s. SR. Afebrile. Weaned to Room air with saturations in the low to mid 90s. L) hand and AC IVs saline locked. R) IJ running protonix 10mg/hr and octreotide 25ml/hr. EGD planned for the AM. Lower left abdomen puncture site dressing changed to bandaid. NPO after midnight. SBA. Voids per urinal. 3 BM this shift, no visible bleeding in stool. Patient sates stool is pale in color.
--- NOTE | 2016-09-29 04:25 | NUR ---
Significant event: A/O x 3. Up in room with stand by assist. Was able to collect stool sample and the result was a positive hematest. Patient unable to sleep so per melatonin 6mg was given at hs. Patient seemed to be able to rest the remainder of the night. Been NPO since midnight for egd this am.
[2016-09-29 05:59] LABS: ALBUMIN 2.4 gm/dL (3.5-5.0); ANION GAP 11.1 (10.0-19.0); BLOOD UREA NITROGEN 11 mg/dL (6-24); CHLORIDE 111 mMol/L (96-110); CO2 24 mMol/L (22-32); ESTIMATED GFR (MDRD EQUATION) > 60; PHOSPHORUS 2.1 mg/dL (2.5-4.9); POTASSIUM 3.1 mMol/L (3.7-5.1); SODIUM 143 mMol/L (135-145)
[2016-09-29 06:03] LABS: BASOPHIL # 0.1 K/uL (0.0-0.2); BASOPHIL % 0.6 %; EOSINOPHIL # 0.4 K/uL (0.0-0.5); EOSINOPHIL % 5.2 %; HEMATOCRIT 24.9 % (37.0-53.0); HEMOGLOBIN 8.2 g/dL (11.0-16.0); IMMATURE GRANULOCYTE % 0.5 %; MCH 30.3 pg (27.0-34.0); MCHC 32.9 gm/dL (32.0-36.5); MCV 91.9 fl (83.0-98.0); MPV 11.1 fl (9.4-12.4); NEUTROPHIL # (ANC) 5.5 K/uL (1.4-9.0); NEUTROPHIL % 69.7 %; NRBC % 0 /100WBC (0-0.00); PLATELET COUNT 110 K/uL (150-450); RBC 2.71 M/uL (3.50-5.50); RDW-CV 16.9 % (11.9-14.6); WBC 7.9 K/uL (4.0-11.0)
[2016-09-29 06:09] LABS: INR - (THERAPEUTIC) 1.3 (0.9-1.1); PROTIME 14.4 SECONDS (9.6-11.1)
--- NOTE | 2016-09-29 19:25 | NUR ---
Significant Event: A/Ox3. VSS on room air. EDG done this AM. Bands x3 placed. Patient is tolerating his low sodium diet. Up ad nan in room. 4 mod pasty/rodolfo colored stools. Hematest positive. Voids per urinal Pleasant and cooperative with cares.
[2016-09-30 04:36] LABS: BASOPHIL # 0.1 K/uL (0.0-0.2); EOSINOPHIL # 0.5 K/uL (0.0-0.5); EOSINOPHIL % 4.3 %; HEMATOCRIT 27.9 % (37.0-53.0); IMMATURE GRANULOCYTE # 0.1 K/uL (0.0-0.3); IMMATURE GRANULOCYTE % 0.6 %; LYMPHOCYTE # 1.2 K/uL (0.8-4.0); LYMPHOCYTE % 11.6 %; MCH 29.8 pg (27.0-34.0); MCHC 32.3 gm/dL (32.0-36.5); MCV 92.4 fl (83.0-98.0); MONOCYTE # 1.2 K/uL (0.0-1.0); MONOCYTE % 11.8 %; MPV 11.1 fl (9.4-12.4); NEUTROPHIL # (ANC) 7.4 K/uL (1.4-9.0); NEUTROPHIL % 70.7 %; NRBC % 0 /100WBC (0-0.00); RBC 3.02 M/uL (3.50-5.50); RDW-CV 17.3 % (11.9-14.6); WBC 10.5 K/uL (4.0-11.0)
[2016-09-30 04:38] LABS: PLATELET COUNT 153 K/uL (150-450)
--- NOTE | 2016-09-30 07:56 | NUR ---
Significant Event:A/O, VSS, RA, afebrile, no c/o pain, voiding well per urinal, BM this am, cooperative with cares Follow up: continue plan of care
[2016-09-30] MEDS ORDERED: PERIDEX15 ML PO (09:53)
[2016-09-30] MEDS ORDERED: NICODERM / HABIT7 MG TOP (09:55)
[2016-09-30] MEDS ORDERED: ALDACTONE50 MG PO (09:58)
[2016-09-30] MEDS ORDERED: CIPROFLOXACIN750 MG PO (10:01)
[2016-09-30 10:38] LABS: INR - (THERAPEUTIC) 1.3 (0.9-1.1); PROTIME 13.6 SECONDS (9.6-11.1)
--- NOTE | 2016-09-30 16:44 | NUR ---
Discharge Note: VSS. Patient verblized understanding of teaching.
[2017-02-03] MEDS ORDERED: K-TAB ER20 MEQ PO (13:19)
[2017-02-03] MEDS ORDERED: CARAFATE1 GM PO ×2 (13:19→13:31)
[2017-02-03] MEDS ORDERED: FOLIC ACID1 MG PO (13:20)
[2017-02-03] MEDS ORDERED: LASIX40 MG PO (13:21)
[2017-02-03] MEDS ORDERED: VITAMIN B-1100 M1 PO (13:21)
[2017-02-03] MEDS ORDERED: CELEXA20 MG PO (13:22)
[2017-02-03] MEDS ORDERED: ALDACTONE50 MG PO (13:23)
[2017-02-03] MEDS ORDERED: TIZANIDINE HCL2 MG PO (13:24)
[2017-02-03] MEDS ORDERED: CIPROFLOXACIN750 MG PO (13:25)
[2017-02-03] MEDS ORDERED: ELAVIL25 MG PO (13:26)
[2017-02-03] MEDS ORDERED: PEPCID20 MG PO (13:26)
== END 2016-09-30 15:15 | disposition disaster alternative care site (69) | DRG 871 ==
LOC: GPCU 23:44
PROVIDERS: Family Medicine; Internal Medicine Gastroenterology; Registered Nurse; ADMIT Internal Medicine
PROC: 05HM33Z Insertion of Infusion Device into Right Internal Jugular Vein, Percutaneous Approach (ICD-10-PCS; principal; 2016-09-26)
PROC: 30233N1 Transfusion of Nonautologous Red Blood Cells into Peripheral Vein, Percutaneous Approach (ICD-10-PCS; 2016-09-26)
PROC: 0W9G3ZX Drainage of Peritoneal Cavity, Percutaneous Approach, Diagnostic (ICD-10-PCS; 2016-09-26)
PROC: 06L34CZ Occlusion of Esophageal Vein with Extraluminal Device, Percutaneous Endoscopic Approach (ICD-10-PCS; 2016-09-29)
PROC: 0W9G3ZZ Drainage of Peritoneal Cavity, Percutaneous Approach (ICD-10-PCS; 2016-09-30)
DX: A41.9 Sepsis, unspecified organism (principal); I85.01 Esophageal varices with bleeding; D68.9 Coagulation defect, unspecified; K65.2 Spontaneous bacterial peritonitis; K70.31 Alcoholic cirrhosis of liver with ascites; D62 Acute posthemorrhagic anemia; I10 Essential (primary) hypertension; R65.20 Severe sepsis without septic shock; Z86.718 Personal history of other venous thrombosis and embolism; Z79.01 Long term (current) use of anticoagulants; Z87.891 Personal history of nicotine dependence
CPT/HCPCS: C9113; J0696; J2354; J3010; J3480; J7030; J7040; J7042; J7050; P9016; P9017; P9047

== ENCOUNTER → 2016-11-07 | Day surgery (SDC) | payer MEDICARE ==
[~2016-11-07] VITALS: Ht 182.9 cm; Wt 68.6 kg
[~2016-11-07] MED LIST: (DPS FOR ANTIVE25 MG PO; ALDACTONE50 MG PO; CARAFATE1 GM PO; CELEXA20 MG PO; CIPROFLOXACIN750 MG PO; COUMADIN ** IA3 MG PO; ELAVIL25 MG PO; FOLIC ACID1 MG PO; GATIFLOXACIN2.5 ML OPHTH; K-TAB ER20 MEQ PO; LASIX40 MG PO; NICODERM / HABIT7 MG TOP; PANTOPRAZOLE SO40 MG PO; PEPCID20 MG PO; PERIDEX15 ML PO; PROTONIX40 MG PO; TIZANIDINE HCL2 MG PO; VITAMIN B-1100 M1 PO; ZANAFLEX2 MG PO
--- NOTE | ~2016-11-07 | OR ---
PATIENT'S NAME: ROBSON HOWELL [facility] AGE: 61 Y [address] ROOM: [place] [address] LOCATION: GEND ADMIT DATE: 11/07/2016 OR/Procedure Report DISCHARGE DATE: FAMILY PHYSICIAN: Jama Bledsoe MD ATTENDING PHYSICIAN: MARVA TREJO SURGEON: Geovanny Lynne MD WEAVING SUPERVISOR: DATE OF PROCEDURE: 11/07/2016 PROCEDURE: Esophagogastroduodenoscopy. INDICATION: History of variceal banding. MEDICATIONS: Please see Anesthesiology record for details. CONSENT: The risks/benefits/alternatives were discussed and the patient or his power of employee benefits attorney expressed understanding and agreed to proceed. Informed consent was obtained and placed in the chart. Time-out was completed prior to starting the procedure. PROCEDURE: Patient was placed in the left lateral decubitus position. One- lead EKG monitoring was used along with intermittent blood pressure monitoring and pulse oximetry. Bite block was placed in the patient's mouth. The above medications were given and titrated to response. Once adequate sedation was completed, the endoscope was passed through the patient's mouth into the posterior oropharynx. The endoscope was then passed into the esophagus, stomach and duodenal bulb. The duodenum was examined through the third portion. The endoscope was then withdrawn into the stomach. In the stomach, retroflexion was completed. The scope was then straightened and withdrawn from the patient. The patient tolerated the procedure well. There were no complications. FINDINGS: 1. Normal proximal esophagus. In the distal esophagus, there was 1 small varix that flattened completely on insufflation. There was 1 red jose azam in the esophagus as well. 2. No gastric varices. 3. Portal gastropathy with active oozing in 2 different spots. 4. Normal duodenum with friable mucosa. ASSESSMENT AND PLAN: History of esophageal varices: The patient did not have varices large enough to band on exam today. I would recommend repeat EGD in 3 months to reassess; if this is negative, then can go to a longer interval for the next exam. PATIENT'S NAME: ROBSON HOWELL [facility] AGE: 61 Y [address] ROOM: [place] [address] LOCATION: GEND ADMIT DATE: 11/07/2016 OR/Procedure Report DISCHARGE DATE: FAMILY PHYSICIAN: Jama Bledsoe MD ATTENDING PHYSICIAN: MARVA TREJO J CESAR LYNNE MD JRT/modl /[id number] d: 11/07/16 1748 t: 11/10/16 1357, OPERATIVE SUMMARY
== END | disposition disaster alternative care site (69) ==
LOC: GPOC 11-03 09:00 → GEND 09:24
PROC: 0DJ08ZZ Inspection of Upper Intestinal Tract, Via Natural or Artificial Opening Endoscopic (ICD-10-PCS; principal; 2016-11-07)
DX: K31.89 Other diseases of stomach and duodenum (principal); K70.31 Alcoholic cirrhosis of liver with ascites; Z87.19 Personal history of other diseases of the digestive system; Z79.2 Long term (current) use of antibiotics; Z79.899 Other long term (current) drug therapy
CPT/HCPCS: J7030

== ENCOUNTER 2017-02-23 13:00 | Inpatient (IN) | payer MEDICARE ==
[~2017-02-23] VITALS: Ht 182.9 cm; Wt 64.6 kg
--- NOTE | ~2017-02-23 | HP ---
PATIENT'S NAME: ORBSON HOWELL [facility] AGE: 61 Y [address] ROOM: [id number] [place] [id number] LOCATION: [facility] ADMIT DATE: 02/23/2017 History & Physical DISCHARGE DATE: FAMILY PHYSICIAN: PHYSICIAN, UNKNOWN ATTENDING PHYSICIAN: Danielle PAULA DATE OF SERVICE: CHIEF COMPLAINT: GI bleed. HISTORY OF PRESENT ILLNESS: The patient is a 61-year-old male with past medical history of alcoholic liver cirrhosis, who presented here from [facility] with possible GI bleed. The patient was initially admitted on February 14 at [facility] after he was found down at home. The patient was admitted in the hospital and was treated supportively for decompensated liver cirrhosis. The patient's symptoms improved. The patient had multiple paracenteses, and one of the paracenteses showed SBP. He was started on antibiotics initially with cephalosporin, and was changed to Zosyn. However, during his stay, he was also started on steroids with improvement. His physician at the hospital contacted [facility] for a possible transfer. However, [facility] suggested to keep the current treatment. However, during his stay, subsequently, the patient started having increased white blood cell count and also a drop in his hemoglobin. Drop in hemoglobin went from baseline 8 to 7, and also Hemoccult-positive. Since the patient has a history of variceal bleeds with banding done by Dr. Johnson, the patient was transferred to our facility for further care and possible EGD with banding. The patient is alert, oriented, and appeared comfortable. He has had TIPS done in 2006, and however, still required multiple paracenteses. Ultrasound was done, venous study was done, and it shows patent TIPS with sluggish flow. Of note, the patient also had some acute kidney injury during his stay at the [facility] secondary to multiple paracenteses. He was given some IV fluid with improvement in symptoms. The patient reports that his last drink was 4 months ago and he continues to smoke. MEDICAL HISTORY: 1. Alcoholic liver cirrhosis. 2. Osteoporosis. 3. Hypertension. 4. Protein-calorie malnutrition. 5. Alcoholic abuse. PATIENT'S NAME: ROBSON HOWELL [facility] AGE: 61 Y [address] ROOM: [id number] [place] [id number] LOCATION: [facility] ADMIT DATE: 02/23/2017 History & Physical DISCHARGE DATE: FAMILY PHYSICIAN: PHYSICIAN, UNKNOWN ATTENDING PHYSICIAN: Danielle PAULA 6. Tobacco use. PAST SURGICAL HISTORY: 1. Placement of TIPS in 2006. 2. Multiple foot surgeries. 3. Right shoulder surgery. 4. Right hip surgery. 5. Multiple EGDs. FAMILY HISTORY: Dad has a history of aneurysm associated with seizure, and reports that mother is healthy and she is 92 years old. SOCIAL HISTORY: Last drink was four months ago. He still smokes. 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 He reports that his POA is his sister, Shanell Trevizo. MEDICATIONS: Currently being reconciled. REVIEW OF SYSTEMS: All systems have been reviewed, and are negative except for what I mentioned. PHYSICAL EXAMINATION: VITAL SIGNS: Afebrile, blood pressure of 115/70, heart rate of 87, respiratory rate of 20, and saturating 97% on room air. GENERAL APPEARANCE: The patient is cachectic with distended abdomen and jaundice. HEAD: Normocephalic and atraumatic. EYES: Scleral icterus. NOSE: No nasal discharge. EARS: No ear discharge. CHEST: Clear to auscultation bilaterally. HEART: Regular rate and rhythm. No murmurs, rubs, or gallops. ABDOMEN: Distended with fluid shift and umbilical hernia. SKIN: Jaundice. EXTREMITIES: No edema. 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 Motor and sensory were grossly intact. LABORATORY DATA: Labs done at [place] on the shows sodium of 132, urea of 35, PATIENT'S NAME: ROBSON HOWELL [facility] AGE: 61 Y [address] ROOM: [address] [address] LOCATION: [facility] ADMIT DATE: 02/23/2017 History & Physical DISCHARGE DATE: FAMILY PHYSICIAN: PHYSICIAN, UNKNOWN ATTENDING PHYSICIAN: Danielle PAULA creatinine of 1.2, direct bilirubin of 14.3, albumin of 2.2, alkaline phosphatase of 198, AST of 111, ALT of 81, lipase of 135, amylase of 52, and magnesium of 2.1. INR on the 15 was 1.4, hemoglobin of 7.6, platelets of 117, white blood cell count of 13.6, and MCV of 93.5. ASSESSMENT AND PLAN: 1. Possible gastrointestinal bleed. The patient's hemoglobin dropped 1 g to 2 g at the outside hospital. Concern for esophageal varices as the patient has history of varices. Start the patient on Protonix and octreotide drip. Type and screen. To transfuse if hemoglobin is below 7. To check serial H and H every 8 hours. To consult GI for possible EGD. We will start the patient on ceftriaxone 2 g IV daily for possible bacterial translocation. 2. Decompensated liver cirrhosis. The patient appears to be at end-stage liver disease. Apparently, not a candidate for transplant per Dr. Chapa who was the transferring physician at [facility] as he talked to the [facility]plant [facility] at [place] with [facility]. His discriminant function score is greater than 32, but however, we will hold off treatment as there is ongoing spontaneous bacterial peritonitis treatment. The patient is to have a paracentesis tomorrow after the EGD. To give albumin with a large amount of paracentesis. As everything appears to be normal, I think that the patient might benefit being started on diuretics. We will also repeat imaging of the TIPS as I suspect there might be a TIPS dysfunction as the patient continued to have large volume ascites. 3. Spontaneous bacterial peritonitis. Recent history of spontaneous bacterial peritonitis. Currently on Zosyn, will be changed to ceftriaxone 2 g daily. To repeat fluid analysis tomorrow. 4. Severe protein-calorie malnutrition secondary to underlying disease of liver disease. 5. Acute blood loss anemia. See problem #1. 6. Thrombocytopenia secondary to sequestration due to liver disease. 7. Ascites. To have ultrasound-guided paracentesis. 8. Hepatic encephalopathy, grade 1. The patient has some sort of asterixis and decreased sleep. He declines the use of lactulose. We will start the patient on rifaximin. 9. History of esophageal bleeding. We will start the patient on Protonix and also octreotide. 10. Physical deconditioning. PT/OT and possible Custodial Facility transfer. Actually, the patient is scheduled to be transferred to Custodial Facility from the outside hospital. We will follow up with that. We will also have Social Work consult. PATIENT'S NAME: ROBSON HOWELL [facility] AGE: 61 Y [address] ROOM: [address] [address] LOCATION: [facility] ADMIT DATE: 02/23/2017 History & Physical DISCHARGE DATE: FAMILY PHYSICIAN: PHYSICIAN, UNKNOWN ATTENDING PHYSICIAN: Danielle PAULA The patient has a poor prognosis due to his end-stage liver disease. We will treat the patient with IV antibiotics and packed red blood cells as needed. The patient is scheduled to have EGD with Dr. Johnson. Greater than 70 minutes was spent on patient care. Greater than 50% of the time was spent in discussion with Dr. Chapa from [facility]. Assessment and plan was discussed with the patient. Code status on admission was full code. MD JODY RUDD/myla /[id number] D: [id number] T: [id number] HISTORY & PHYSICAL
--- NOTE | ~2017-02-23 | DS ---
PATIENT'S NAME: ROBSON HOWELL [facility] AGE: 62 Y [address] ROOM: [id number] [place], [place] [address] LOCATION: GPCU ADMIT DATE: 02/23/2017 Discharge Summary DISCHARGE DATE: 02/28/2017 FAMILY PHYSICIAN: Jama Bledsoe MD ATTENDING PHYSICIAN: Danielle Nugent FINAL DIAGNOSES: 1. Anemia/acute blood loss. 2. Decompensated end-stage liver disease. 3. Subacute bacterial peritonitis. 4. Thrombocytopenia. 5. Acute kidney injury on stage 3 chronic kidney disease. 6. Mild protein calorie malnutrition. 7. Physical deconditioning. 8. Long-standing alcohol dependence. HISTORY OF PRESENT ILLNESS: For details of admission, please see the history and physical dictated by Dr. Nugent. In short, the patient was transferred in [place] after a hospitalization for his decompensated liver disease. It was also noted that his hemoglobins were dropping, so he was transferred here for Gastroenterology evaluation. LABORATORY DATA: Sodium was 131 on admission, discharge 131; potassium on admit was 4.2, got as low as 3.4 on the , at discharge was 4.4; chloride on admission 97, discharge 98; BUN on admission was 36, got as high as 42, was 35 on discharge; creatinine on admission was 1.3, got as high as 1.5, discharge 1.3. His bilirubin on admission was 24.0, at discharge it was 26.2; alkaline phosphatase on admission 223, discharge 172; AST on admission was 121, discharge 106; ALT on admission was 92, discharge 75. Magnesium on admission was 2.2, discharge 2.1. On admission, white blood cell count was 22.5, most prior to discharge it was 15.6. Hemoglobin on admission was initially 9, it went down to 7.9 and it did drift down to 7.2 on the , he remained in the 7 range until the he had one where he dropped to 6.5, a repeat value showed a 7.5 and then at discharge 8.5; and platelet count on admission was 142, discharge 102. Pro time on admission was 14.3 with an INR of 1.36. CULTURE DATA: Blood and peritoneal fluid were negative. X-RAY DATA: Abdominal and renal duplex of the abdomen and ultrasound showed that his TIPS was patent. He did have ascites. HOSPITAL COURSE: The patient was accepted in transfer, admitted into the intensive care unit. He was initiated on IV octreotide as well as IV Protonix drip. Dr. Johnson was asked to see the patient. Paracentesis was ordered PATIENT'S NAME: ROBSON HOWELL [facility] AGE: 62 Y [address] ROOM: [place] [address] LOCATION: GPCU ADMIT DATE: 02/23/2017 Discharge Summary DISCHARGE DATE: 02/28/2017 FAMILY PHYSICIAN: Jama Bledsoe MD ATTENDING PHYSICIAN: Danielle Nugent including cell count, albumin, protein, and culture. The patient was seen for the EGD, which was done on the and did not show any evidence of variceal bleeding. Please see Dr. Johnson's note for the complete details. He did undergo a paracentesis in which he had 5 L removed. Decision was made to put him on a restricted diet, get him back on his Lasix and Aldactone, and work for placement. He did receive IV albumin before and after his paracentesis due to large volume and his kidney function. His hemoglobins were monitored very closely. He had been continued on Rocephin IV for peritonitis, this was changed to Cipro once a week for prophylaxis. His potassium and electrolytes were followed and replaced. His TIPS was evaluated to make sure that it was functioning. It was felt that the patient was stable for discharge. Initial thought was that he was going to be discharged to a facility, however, they felt that they were unable to take him. He then did have another paracentesis on the , for which he received albumin before and after. He did have 4850 fluid removed. The fluid was a little bit bloody, so hemoglobins were ordered. His hemoglobin did drop to 6.5, he however remained hemodynamically stable throughout. He did not have any change in his blood pressure or heart rate. He did receive 1 unit of packed red blood cells, and he was watched throughout the day. In fact, his hemoglobin went up to 8.5. It was felt that he was able to ambulate in the hallway and work with therapy, it was felt that he was stable. He is to have a regular 2 g sodium diet. He is a full code. He is to have Ensure 3 times daily with meals. He is weightbearing as tolerated. PT/OT consult. Renal panel in the morning of March [address] Bledsoe. MEDICATIONS: 1. Cipro 750 mg weekly. 2. Celexa 20 mg daily. 3. Folic acid 1 mg daily. 4. Lasix 40 mg twice daily. 5. Protonix 40 mg daily. 6. K-Tab 20 mEq twice daily. 7. Aldactone 50 mg in the morning. 8. Carafate 1 g 4 times daily with meals and at bedtime. 9. Xifaxan 550 mg twice daily. 10. Vitamin B1 100 mg daily. 11. Aspercreme to his hands twice daily. 12. Tylenol Extra Strength 500 mg every 6 hours as needed. 13. Desyrel 25 mg at bedtime as needed. 14. Zofran 4 mg every 6 hours as needed for nausea. 15. MiraLax 17 g daily as needed for constipation. I did speak with Dr. Bledsoe by phone regarding this discharge. PATIENT'S NAME: ROBSON HOWELL [facility] AGE: 62 Y [address] ROOM: [place] [address] [facility]: 02/23/2017 Discharge Summary DISCHARGE DATE: 02/28/2017 FAMILY PHYSICIAN: Jama Bledsoe MD ATTENDING PHYSICIAN: Danielle Nugent LARRY MANCERA MD LAW/modl /[id number] CC: Jama Bledsoe MD [facility] d: 03/01/17 0025 t: 03/02/17 1547, DISCHARGE SUMMARY
--- NOTE | ~2017-02-23 | CON ---
PATIENT'S NAME: ROBSON HOWELL [facility] AGE: 61 Y [address] ROOM: [id number] [place] [address] LOCATION: GPCU ADMIT DATE: 02/23/2017 Consultation DISCHARGE DATE: FAMILY PHYSICIAN: Jama Bledsoe MD ATTENDING PHYSICIAN: Danielle PAULA DATE OF CONSULTATION: 02/23/2017 REFERRING PHYSICIAN: MARVA TREJO MD REASON FOR CONSULTATION: Suspected upper GI bleed and liver cirrhosis. HISTORY OF PRESENT ILLNESS: This is a 61-year-old gentleman who is known to our Gastroenterology Services as he has a past medical history of alcoholic liver cirrhosis. The patient presented to the [facility]. He was initially admitted on February 14 after he was subsequently found down at home. The patient was admitted and treated supportively for decompensated liver cirrhosis. Multiple paracenteses were completed with one showing SBP. He was started on antibiotics initially with cephalosporin and changed to Zosyn. During his stay, he also was placed on methylprednisolone for findings of acute increase of his LFTs as well as feeding protocol for possible alcoholic hepatitis. His methylprednisolone was discontinued after SBP came back positive. The patient was then transferred to [facility] after he was noted to have decrease of hemoglobin as well as Hemoccult-positive stool. The patient was seen and examined while in intensive care. He previously had TIPS procedure done. Ultrasound that was completed at the outside facility did show a sluggish flow per his TIPS. The patient denies any noticeable blood in the stool or hematemesis. He previously has undergone esophageal variceal banding ligation. At his last endoscopy in November, the patient did not have any varices large enough to band. The patient denies any acute chest pain, chest pressure, shortness of breath, fever, or chills. He also denies any alcohol use over the past 4 months. PAST MEDICAL HISTORY: Alcoholic liver disease, osteoporosis, hypertension, protein-calorie malnutrition, history of alcohol abuse, and tobacco abuse. PAST SURGICAL HISTORY: TIPS placed in 2006, multiple foot surgeries, right shoulder surgery, right hip surgery, and multiple upper endoscopies. SOCIAL HISTORY: The patient reports his last drink was approximately 4 months ago. He does use PATIENT'S NAME: ROBSON HOWELL [facility] AGE: 61 Y [address] ROOM: [place] [address] LOCATION: GPCU ADMIT DATE: 02/23/2017 Consultation DISCHARGE DATE: FAMILY PHYSICIAN: Jama Bledsoe MD ATTENDING PHYSICIAN: Danielle PAULA. 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 FAMILY HISTORY: The patient's father had aneurysm associated with seizure. The patient's mother also was healthy. ALLERGIES: ADHESIVE TAPE. CURRENT MEDICATIONS: Please refer to the medication administration record. REVIEW OF SYSTEMS: All-point review of systems was completed. All were negative except for those identified in the history of present illness. PHYSICAL EXAMINATION: GENERAL: A pleasant 61-year-old gentleman, lying in bed, who appears to be in no acute distress. VITAL SIGNS: Temperature 98.4, pulse of 84, respirations of 26, blood pressure 112/64, and oxygen saturations 98% on room air. SKIN: Gleason, warm, and dry. Slightly icteric. HEENT: Head is normocephalic and atraumatic. Pupils are equal, round, and reactive to light. Sclerae are anicteric. Oral mucosa is pink and moist. NECK: Soft and supple. CARDIOVASCULAR: Normal S1 and S2. RESPIRATORY: Respirations even and nonlabored. LUNGS: Clear to auscultation. Slightly diminished in the bilateral lobes. ABDOMEN: Distended with fluid shift. Noted umbilical hernia. Bowel sounds positive. MUSCULOSKELETAL: No muscle weakness or atrophy. EXTREMITIES: No edema. NEUROLOGIC: Grossly nonfocal. Mild asterixis. LABS AND DIAGNOSTICS: Laboratory reviewed from the outside facility, did show sodium 132, urea of 35, creatinine 1.2, direct bilirubin of 14.3, albumin of 2.2, alkaline phosphatase of 198, AST of 111, ALT of 81, lipase of 135, amylase of 52, and magnesium of 2.1. Abdominal Dopplers were also completed, showing TIPS slightly stenotic. ASSESSMENT AND PLAN: Again, this is a very pleasant 61-year-old gentleman, who was transferred from [facility]. PATIENT'S NAME: ROBSON HOWELL [facility] AGE: 61 Y [address] ROOM: [place] [address] LOCATION: GPCU ADMIT DATE: 02/23/2017 Consultation DISCHARGE DATE: FAMILY PHYSICIAN: Jama Bledsoe MD ATTENDING PHYSICIAN: Danielle PAULA 1. Possible gastrointestinal bleed. The patient's hemoglobin did drop 1 gram at the outside facility. He does have a history of esophageal varices. He currently has been placed on Protonix drip and octreotide drip as these should be continued. We will go forth with an upper endoscopy for evaluation of possible causes of bleed as well as evaluation of his history of esophageal varices. 2. Decompensated liver cirrhosis. The patient does appear to have end-stage liver cirrhosis. He is not a liver transplant candidate at this time. This was discussed with [facility] prior to transfer to [facility]. His DF is greater than 32, though secondary to his spontaneous bacterial peritonitis, treatment will not be recommended. 3. Spontaneous bacterial peritonitis. The patient will undergo a repeat paracentesis in the morning with air fluid analysis. The patient currently is placed on ceftriaxone as this should be continued for his previous positive spontaneous bacterial peritonitis. Also concern for possible TIPS needing to be revised secondary to stenotic area noted as well as increased velocities. This will be discussed with Interventional Radiology over the patient's course of hospitalization for possible revision. 4. Hepatic encephalopathy. The patient does have a mild flap as well as he reports sleeping more significantly through the day. He does state that at home, he does not utilize his lactulose as prescribed. The patient has been started on rifaximin per hospitalist. Further recommendations over the patient's course of hospitalization as well as results of paracentesis and upper endoscopy. Thank you for this consult. CANDIS LEVY APRN FOR MD PRICILLA TABARES/modl /[id number] d: 02/24/172003 t: 03/02/17806, CONSULTATION REPORT
[~2017-02-23 13:00] MED LIST changes: -PANTOPRAZOLE SO40 MG PO
[2017-02-23 15:30] LABS: MCH 32.1 pg (27.0-34.0); MCHC 34.6 gm/dL (32.0-36.5); MCV 92.9 fl (83.0-98.0); MPV 11.5 fl (9.4-12.4); PLATELET COUNT 142 K/uL (150-450); RDW-CV 20.4 % (11.9-14.6)
[2017-02-23 15:32] LABS: WBC 22.5 K/uL (4.0-11.0)
[2017-02-23 15:37] LABS: INR - (THERAPEUTIC) 1.36 (0.92-1.07); PROTIME 14.3 SECONDS (9.8-11.4)
[2017-02-23 15:52] LABS: ALBUMIN 2.2 gm/dL (3.5-5.0); ANION GAP 14.2 (10.0-19.0); CALCIUM 7.6 mg/dL (8.5-10.5); POTASSIUM 4.2 mMol/L (3.7-5.1)
[2017-02-23 15:53] LABS: CREATININE 1.3 mg/dL (0.6-1.3); TOTAL PROTEIN 5.6 g/dL (6.0-8.4)
[2017-02-23 16:04] LABS: ABSOLUTE NEUTROPHIL CT (ANC) 20.3 K/uL (1.4-9.0); BANDED NEUTROPHIL # 1.6 K/uL (0.0-0.1); BANDED NEUTROPHILS % 7 %; LYMPHOCYTE # 0.5 K/uL (0.8-4.0); LYMPHOCYTE % 2 %; MONOCYTE # 1.4 K/uL (0.0-1.0); SEGMENTED NEUTROPHIL # 18.7 K/uL (1.4-9.0); SEGMENTED NEUTROPHIL % 83 %
[2017-02-23 21:27] LABS: HEMATOCRIT 24.8 % (37.0-53.0); HEMOGLOBIN 8.4 g/dL (11.0-16.0)
[2017-02-24 06:18] LABS: HEMATOCRIT 23.6 % (37.0-53.0)
[2017-02-24 06:19] LABS: HEMOGLOBIN 7.9 g/dL (11.0-16.0)
[2017-02-24 06:37] LABS: ANION GAP 11.6 (10.0-19.0); CALCIUM 7.6 mg/dL (8.5-10.5); POTASSIUM 4.6 mMol/L (3.7-5.1)
[2017-02-24 06:50] LABS: ALBUMIN 1.9 gm/dL (3.5-5.0); CREATININE 1.4 mg/dL (0.6-1.3); TOTAL BILIRUBIN 22.2 mg/dL (0.0-1.5); TOTAL PROTEIN 4.8 g/dL (6.0-8.4)
[2017-02-24 12:57] LABS: HEMATOCRIT 25.7 % (37.0-53.0); HEMOGLOBIN 8.7 g/dL (11.0-16.0)
[2017-02-24 14:20] LABS: HEMOGLOBIN 8.5 g/dL (11.0-16.0)
[2017-02-24] MEDS ORDERED: PANTOPRAZOLE SO40 MG PO (14:46)
[2017-02-24 16:51] LABS: PERITONEAL FLUID TURBIDITY 3+ (CLEAR)
[2017-02-24 18:22] LABS: % PERITONEAL FLUID EOS 2 % (0-0); % PERITONEAL FLUID MONO/MACRO 40 % (0-0); % PERITONEAL FLUID NEUT 50 % (0-25)
[2017-02-24 21:15] LABS: HEMATOCRIT 21.7 % (37.0-53.0)
[2017-02-24 21:17] LABS: HEMOGLOBIN 7.2 g/dL (11.0-16.0)
[2017-02-25 05:09] LABS: BASOPHIL % 0.1 %; EOSINOPHIL # 0.3 K/uL (0.0-0.5); EOSINOPHIL % 2.1 %; IMMATURE GRANULOCYTE # 0.6 K/uL (0.0-0.3); IMMATURE GRANULOCYTE % 4.4 %; LYMPHOCYTE # 0.6 K/uL (0.8-4.0); LYMPHOCYTE % 4.3 %; MCH 31.8 pg (27.0-34.0); MCHC 33.6 gm/dL (32.0-36.5); MCV 94.4 fl (83.0-98.0); MONOCYTE # 1.4 K/uL (0.0-1.0); MONOCYTE % 10.3 %; MPV 10.9 fl (9.4-12.4); NEUTROPHIL % 78.8 %; NRBC % 0 /100WBC (0-0.00); PLATELET COUNT 123 K/uL (150-450); RBC 2.33 M/uL (3.50-5.50); RDW-CV 19.9 % (11.9-14.6)
[2017-02-25 05:11] LABS: HEMOGLOBIN 7.4 g/dL (11.0-16.0)
[2017-02-25 05:28] LABS: ALBUMIN 2.3 gm/dL (3.5-5.0); ANION GAP 13.4 (10.0-19.0); CALCIUM 7.7 mg/dL (8.5-10.5); POTASSIUM 4.4 mMol/L (3.7-5.1)
[2017-02-25 05:38] LABS: TOTAL BILIRUBIN 24.3 mg/dL (0.0-1.5); TOTAL PROTEIN 4.9 g/dL (6.0-8.4)
[2017-02-25 05:39] LABS: CREATININE 1.5 mg/dL (0.6-1.3)
[2017-02-25 13:30] LABS: HEMATOCRIT 23.9 % (37.0-53.0); HEMOGLOBIN 7.8 g/dL (11.0-16.0)
[2017-02-25 20:46] LABS: HEMATOCRIT 22.1 % (37.0-53.0); HEMOGLOBIN 7.3 g/dL (11.0-16.0)
[2017-02-26 05:17] LABS: HEMATOCRIT 21.8 % (37.0-53.0)
[2017-02-26 05:21] LABS: HEMOGLOBIN 7.2 g/dL (11.0-16.0)
[2017-02-26 05:34] LABS: ALBUMIN 2.5 gm/dL (3.5-5.0); ANION GAP 14.4 (10.0-19.0); CALCIUM 7.7 mg/dL (8.5-10.5); POTASSIUM 3.4 mMol/L (3.7-5.1)
[2017-02-26 05:36] LABS: TOTAL BILIRUBIN 24.2 mg/dL (0.0-1.5); TOTAL PROTEIN 5.1 g/dL (6.0-8.4)
[2017-02-26 05:37] LABS: CREATININE 1.4 mg/dL (0.6-1.3)
[2017-02-26 12:57] LABS: HEMATOCRIT 24.5 % (37.0-53.0); HEMOGLOBIN 8.1 g/dL (11.0-16.0)
[2017-02-26 21:09] LABS: HEMOGLOBIN 7.1 g/dL (11.0-16.0)
[2017-02-27 05:12] LABS: HEMATOCRIT 21.1 % (37.0-53.0)
[2017-02-27 05:45] LABS: ALBUMIN 2.4 gm/dL (3.5-5.0); ANION GAP 12.2 (10.0-19.0); CALCIUM 7.9 mg/dL (8.5-10.5); POTASSIUM 4.2 mMol/L (3.7-5.1)
[2017-02-27 05:47] LABS: CREATININE 1.2 mg/dL (0.6-1.3); TOTAL PROTEIN 5.1 g/dL (6.0-8.4)
[2017-02-27 05:53] LABS: TOTAL BILIRUBIN 24.3 mg/dL (0.0-1.5)
[2017-02-27 09:40] LABS: HEMATOCRIT 22.9 % (37.0-53.0)
[2017-02-27 09:47] LABS: HEMOGLOBIN 7.7 g/dL (11.0-16.0)
[2017-02-27 13:43] LABS: HEMOGLOBIN 7.6 g/dL (11.0-16.0)
[2017-02-27 21:18] LABS: HEMATOCRIT 19.4 % (37.0-53.0); HEMOGLOBIN 6.5 g/dL (11.0-16.0)
[2017-02-28 01:49] LABS: HEMATOCRIT 22.2 % (37.0-53.0)
[2017-02-28 01:53] LABS: HEMOGLOBIN 7.4 g/dL (11.0-16.0)
[2017-02-28 05:48] LABS: BASOPHIL # 0.1 K/uL (0.0-0.2); BASOPHIL % 0.4 %; EOSINOPHIL # 0.3 K/uL (0.0-0.5); EOSINOPHIL % 1.6 %; HEMATOCRIT 23.1 % (37.0-53.0); IMMATURE GRANULOCYTE # 0.4 K/uL (0.0-0.3); IMMATURE GRANULOCYTE % 2.8 %; LYMPHOCYTE # 0.7 K/uL (0.8-4.0); LYMPHOCYTE % 4.4 %; MCH 31.3 pg (27.0-34.0); MCHC 32.5 gm/dL (32.0-36.5); MCV 96.3 fl (83.0-98.0); MONOCYTE # 1.7 K/uL (0.0-1.0); MONOCYTE % 11.1 %; MPV 11.1 fl (9.4-12.4); NEUTROPHIL # (ANC) 12.4 K/uL (1.4-9.0); NEUTROPHIL % 79.7 %; NRBC % 0 /100WBC (0-0.00); PLATELET COUNT 102 K/uL (150-450); RDW-CV 21.1 % (11.9-14.6); WBC 15.6 K/uL (4.0-11.0)
[2017-02-28 05:50] LABS: HEMOGLOBIN 7.5 g/dL (11.0-16.0)
[2017-02-28 06:09] LABS: ALBUMIN 2.7 gm/dL (3.5-5.0); ANION GAP 12.4 (10.0-19.0); CALCIUM 8.2 mg/dL (8.5-10.5); POTASSIUM 4.4 mMol/L (3.7-5.1)
[2017-02-28 06:12] LABS: CREATININE 1.3 mg/dL (0.6-1.3); TOTAL PROTEIN 5.2 g/dL (6.0-8.4)
[2017-02-28 06:17] LABS: TOTAL BILIRUBIN 26.2 mg/dL (0.0-1.5)
[2017-02-28 09:22] LABS: HEMATOCRIT 25.1 % (37.0-53.0); HEMOGLOBIN 8.3 g/dL (11.0-16.0)
[2017-02-28 14:27] LABS: HEMATOCRIT 25.7 % (37.0-53.0); HEMOGLOBIN 8.5 g/dL (11.0-16.0)
== END 2017-02-28 17:05 | DRG 371 ==
LOC: GICU 14:39 → GPCU 14:39 → GICU 02-24 19:14 → GPCU 02-24 20:09
PROVIDERS: Internal Medicine; Internal Medicine Cardiovascular Disease; ADMIT Internal Medicine
PROC: 0DJ08ZZ Inspection of Upper Intestinal Tract, Via Natural or Artificial Opening Endoscopic (ICD-10-PCS; principal; 2017-02-24)
PROC: 30233N1 Transfusion of Nonautologous Red Blood Cells into Peripheral Vein, Percutaneous Approach (ICD-10-PCS; 2017-02-27)
DX: K65.2 Spontaneous bacterial peritonitis (principal); E43 Unspecified severe protein-calorie malnutrition; D69.6 Thrombocytopenia, unspecified; K70.31 Alcoholic cirrhosis of liver with ascites; K72.90 Hepatic failure, unspecified without coma; D62 Acute posthemorrhagic anemia; N17.9 Acute kidney failure, unspecified; K92.2 Gastrointestinal hemorrhage, unspecified; I12.9 Hypertensive chronic kidney disease with stage 1 through stage 4 chronic kidney disease, or unspecified chronic kidney disease; N18.3 Chronic kidney disease, stage 3 (moderate); F10.21 Alcohol dependence, in remission; M81.0 Age-related osteoporosis without current pathological fracture; F17.200 Nicotine dependence, unspecified, uncomplicated
CPT/HCPCS: C1751; C9113; J0696; J2354; J2405; J7030; J7040; J7050; P9016; P9045; P9047